=== PATIENT | male | born 1975 | race Caucasian/White ===

== ENCOUNTER 2024-08-03 08:59 | Day surgery (SDC) | payer MEDICAID ==
[2024-08-02 11:44] LABS: BASOPHILS # (AUTO) 0.1 X10'3 (0-0.2); BASOPHILS % (AUTO) 1.3 % (0-1); EOSINOPHILS # (AUTO) 0.3 X10'3 (0-0.9); EOSINOPHILS % (AUTO) 3.9 % (0-6); HEMATOCRIT 42.9 % (42.0-52.0); LYMPHOCYTES # (AUTO) 1.9 X10'3 (1.1-4.8); LYMPHOCYTES % (AUTO) 28.4 % (21-51); MEAN CORPUSCULAR HEMOGLOBIN 27.6 PG (27.0-31.0); MEAN CORPUSCULAR HGB CONC 32.8 g/dL (33.0-36.5); MEAN CORPUSCULAR VOLUME 84.1 FL (78-98); MEAN PLATELET VOLUME 7.1 FL (7.4-10.4); MONOCYTES # (AUTO) 0.6 X10'3 (0-0.9); MONOCYTES % (AUTO) 8.2 % (2-12); NEUTROPHILS % (AUTO) 58.2 % (42-75); PLATELET COUNT 312 X10'3 (140-440); RED CELL DISTRIBUTION WIDTH 13.2 % (11.5-14.5); WHITE BLOOD COUNT 6.8 X10'3 (4.5-11.0)
[2024-08-02 12:19] LABS: ALANINE AMINOTRANSFERASE 20 U/L (12-78); ALBUMIN 3.7 G/DL (3.4-5.0); ALBUMIN/GLOBULIN RATIO 1.3 (1.1-1.5); ALKALINE PHOSPHATASE 85 IU/L (46-116); ANION GAP 7 (8-16); ASPARTATE AMINO TRANSFERASE 14 U/L (10-37); BILIRUBIN,TOTAL 0.4 MG/DL (0.1-1.0); BLOOD UREA NITROGEN 21 MG/DL (7-18); BUN/CREATININE RATIO 25.3 (10.0-20.0); CALCIUM 8.6 MG/DL (8.5-10.1); CHLORIDE 106 MMOL/L (99-107); CREATININE 0.83 MG/DL (0.60-1.10); GLUCOSE 81 MG/DL (70-104); POTASSIUM 4.1 MMOL/L (3.5-5.1); SODIUM 141 MMOL/L (135-145); TOTAL CARBON DIOXIDE 27.6 MMOL/L (24-32); TOTAL PROTEIN 6.5 G/DL (6.4-8.2); eGFR > 90 ML/MIN
[~2024-08-03] VITALS: Ht 177.8 cm; Wt 76.8 kg
[2024-08-03] VITALS (14 sets, daily range): BP systolic 136–153; BP diastolic 81–103; PULSE 71–84; RESP 13–16; TEMP 98.1; O2SAT 96–100
[2024-08-03] MEDS: ceFAZolin 2gm in dextrose, iso 50 ML IV ONE (05:30)
[~2024-08-03 08:59] MED LIST: BUPIVAcaine 2.5mg/ml inj 50ml vial (contains preservative) ONE; IBUPROFEN; LIDOcaine 1% 30ml preserv. free vial ONE; albuterol 2.5 MG/3 ML nebule NEB PRN
[2024-08-03] MEDS: famotidine 20mg tablet PO ONE (09:59)
[2024-08-03] MEDS: ringers solution, lacted 1,000 ML IV SCH (10:00)
[2024-08-03] MEDS ORDERED: sevoflurane 250ml liquid IH ONE (11:28)
[2024-08-03] MEDS ORDERED: midazolam 1 mg/ML 2ml injection ONE (11:36)
[2024-08-03] MEDS ORDERED: fentaNYL/PF 50MCG/1 ML 2ML syringe ONE (11:36)
[2024-08-03] MEDS ORDERED: propofol inj 20 ML IV ONE (11:37)
[2024-08-03] MEDS: BUPIVAcaine/PF 2.5 mg/ml (0.25%) 30ml vial IJ ONE (12:13)
[2024-08-03] MEDS ORDERED: HYDROmorphone/PF 0.2 MG/ML SYRINGE IV PRN ×2 (12:40)
[2024-08-03] MEDS ORDERED: hydrALAZINE 20mg/ml inj. IV PRN (12:40)
[2024-08-03] MEDS ORDERED: labetalol 20mg/4ml (5mg/ml) syringe IV PRN (12:40)
[2024-08-03] MEDS ORDERED: meperidine/PF 100mg/ml syringe IV PRN (12:40)
[2024-08-03] MEDS ORDERED: ondansetron/PF 4mg/2ml inj IV PRN (12:40)
[2024-08-03] MEDS ORDERED: morphine 2 MG/ML inj. syringe IV PRN (12:40)
[2024-08-03] MEDS ORDERED: ringers solution, lacted 1,000 ML IV SCH (12:40)
[2024-08-03] MEDS ORDERED: dexamethasone sod phosphate 4mg/ml inj. ONE (13:08)
[2024-08-03] MEDS ORDERED: ondansetron/PF 4mg/2ml inj ONE (13:08)
[2024-08-03] MEDS ORDERED: rocuronium 10mg/ml inj IV ONE (13:08)
[2024-08-03] MEDS ORDERED: glycopyrrolate 0.2mg/ml inj ONE (13:10)
[2024-08-03] MEDS ORDERED: neostigmine methylsulfate 1 MG/ML 10ml vial ONE (13:10)
[2024-08-03] MEDS: ketorolac trometh 30MG/ML vial 30 MG/ML VIAL IV ONE (14:24)
[2024-08-03] MEDS: morphine 4 MG/ML inj SYRINge IV PRN (14:24)
[2024-08-03] MEDS: HYDROcodone/acetaminophen 5mg/325mg tablet PO PRN (14:24)
== END 2024-08-03 17:15 | disposition home or self-care (01) ==
LOC: PAS 08:59
PROVIDERS: ATTEND Surgery
DX: K40.20 Bilateral inguinal hernia, without obstruction or gangrene, not specified as recurrent (principal); I10 Essential (primary) hypertension; F17.210 Nicotine dependence, cigarettes, uncomplicated; Z98.890 Other specified postprocedural states; Z79.899 Other long term (current) drug therapy; Z86.14 Personal history of Methicillin resistant Staphylococcus aureus infection; Z82.49 Family history of ischemic heart disease and other diseases of the circulatory system
CPT/HCPCS: 36415; 49650; 80053; 82948; 85025; 93005; C1781; J0690; J1100; J1885; J2003; J2250; J2270; J2405; J2704; J2710; J3010; J3490; J7030; J7120; S2900; Z7506; Z7508; Z7512; A4215; A4314; A4618

== ENCOUNTER 2024-08-05 05:25 | Emergency (ER) | payer MEDICAID ==
[~2024-08-05] VITALS: Ht 177.8 cm; Wt 79.6 kg
[~2024-08-05 05:25] MED LIST changes: -BUPIVAcaine 2.5mg/ml inj 50ml vial (contains preservative) ONE; -LIDOcaine 1% 30ml preserv. free vial ONE; -albuterol 2.5 MG/3 ML nebule NEB PRN
[2024-08-05] MEDS: tamsulosin 0.4mg capsule PO SCH (06:45)
[2024-08-05 08:48] VITALS: BP 139/98; PULSE 98; RESP 16; O2SAT 98
[2024-08-05 08:57] VITALS: TEMP 98.3
== END 2024-08-05 08:58 | disposition home or self-care (01) ==
LOC: ER 05:25
DX: N99.842 Postprocedural seroma of a genitourinary system organ or structure following a genitourinary system procedure (principal)
CPT/HCPCS: 76870; 93976; 99284